=== PATIENT | female | born 1975 | race Caucasian/White ===

== ENCOUNTER 2024-11-30 17:52 | Inpatient (IN) | payer BC, SELFPAY ==
[2024-11-30] VITALS (43 sets, daily range): BP systolic 133–188; BP diastolic 64–111; PULSE 71–106; RESP 11–21; TEMP 36.7; O2SAT 93–99
--- NOTE | 2024-11-30 17:45 | RT.EKG_ITS ---
APPROVED REPORT Exam: Resting ECG Reason for Exam: Chest pain Patient Location: E HR:91 bpm ECG Measurements Heart Rate [address] 150 P 46 QRSd 91 QRS 33 QT 349 T -3 QTc 431 Conclusion Sinus rhythm...normal P axis, V-rate 60- 99
--- NOTE | 2024-11-30 18:08 | W.ED.GENAD ---
Discharge Plan Disposition Patient Disposition: Admit to [facility] Condition: Serious Discharge Details Clinical Impression: NSTEMI (non-ST elevated myocardial infarction) Admit Date/Time: 11/30/24 22:08 Admit Provider: Lit Spivey Attending Provider: Lit Spivey Primary Care Provider: Ana Cristina Ramos ED Provider: [place] [facility] General Mode of arrival: ambulatory. Date/Time Provider Initiated Documentation: 11/30/24 17:54. Limitations to Documentation: no limitations. Information obtained by: patient. History of Present Illness 49 year old F presents to the emergency department with the chief complaint of chest pain, described as moderate, Quality is described as aching, and is localized to the chest. Patient started experiencing this hour(s) (2) and it has been constant. No relieving factors improve symptom(s), No exacerbating factors reported . Patient notes denies fever/chills, nausea/vomiting and shortness of breath. Patient did receive the following treatments prior to arrival, none Related Data Home Medications ?Medication ?Instructions ?Recorded ?Confirmed Unknown [No Known Home Meds] 11/30/24 11/30/24 Allergies Allergy/AdvReac Type Severity Reaction Status Date / Time penicillin G Allergy Unknown Unverified 04/08/17 11:16 General Stated Complaint: Chest Pain DENNISE: 3 Review of Systems All systems reviewed & are unremarkable except as noted in HPI and below Constitutional Constitutional: Denies chills, Denies fever(s) and Denies weakness Cardiovascular Cardiovascular: Reports chest pain and Denies dyspnea Respiratory Respiratory: Denies cough and Denies dyspnea Gastrointestinal Gastrointestinal: Denies abdominal pain, Denies nausea and Denies vomiting Neurologic Neurologic: Denies weakness Exam Const General: no acute distress Orientation: alert [facility] Head: normal to inspection Ears: external ears normal General nose exam: external nose normal Mouth: moist mucous membranes Eyes General: appearance normal, both eyes and all related structures Neck Neck: normal visual inspection Resp Effort & Inspection: normal respiratory effort and able to speak in complete sentences Auscultation: clear to auscultation bilaterally Cardio Jugular venous pressure: no JVD Rate: regular rate Heart Sounds: no murmurs Skin General skin exam: no rashes or lesions noted Neuro General: patient alert and patient oriented x3 Extrem General: normal to inspection Psych Mental Status: mental status grossly normal Course Vital Signs Vital signs: Vital Signs Temperature 36.7 C 11/30/24 17:57 Pulse 103 H 11/30/24 17:57 Respiratory Rate 20 11/30/24 17:57 Blood Pressure 188/111 H 11/30/24 17:57 Pulse Oximetry 97 11/30/24 17:57 Temperature 36.7 C 11/30/24 17:57 Pulse 103 H 11/30/24 17:57 Respiratory Rate 20 11/30/24 18:04 Respiratory Effort Normal 11/30/24 18:04 Respiratory Depth Normal 11/30/24 18:04 Respiratory Pattern Normal 11/30/24 18:04 Blood Pressure 188/111 H 11/30/24 17:57 Blood Pressure Position Sitting 11/30/24 17:57 Pulse Oximetry 97 11/30/24 17:57 Oxygen Delivery Method Room Air 11/30/24 17:57 Oxygen Flow Rate 0 11/30/24 17:57 Pain Level 2 11/30/24 18:04 Medical Decision Making 29-year-old female who states she has no significant past medical history, is a former smoker, comes in with intermittent chest pain over the last day. She denies any diaphoresis, vomiting, difficulty breathing. She says she has an ache in her left shoulder. No recent falls, no fevers or chills. No cough. She is anxious on exam otherwise appears well. Mildly hypertensive to 160 systolic on my exam. She is mildly tachycardic at 105 which could be from her anxiety. She is clear lung sounds, no JVD, no leg swelling or calf tenderness. Given her complaints I will proceed with CBC, CMP and troponins will also obtain CTA of her chest to evaluate for PE given her tachycardia. No tearing back pain equal peripheral pulses so I doubt dissection First troponin positive at 57, patient's pain currently resolved. Will order aspirin. Delta troponin and CTA pending. Second troponin came back at 76 she has recurrent chest pain so heparin infusion ordered and will trial sublingual nitroglycerin. I have called [facility] to speak with cardiology as well I spoke with Dr. Holder from cardiology at [facility] who reviewed the case and agreed with the treatment we have given her and recommend giving a dual antiplatelet currently. They have excepted their facility but they are listing until the . Accepting provider is Dr. Husain to recommend getting an echo if able to in the morning. I also reached out to [facility] to see if they had any availability sooner and they said they cannot take any transfers due to capacity. Dr. Spivey hospitalist plans to admit and board patient in the ED until either bed opens up here or she can be transferred. PAtient updated and agrees with plan Differential Diagnosis Differential Diagnosis: ACS, PE Lab Data Lab results reviewed: Yes I reviewed the patient's lab results. ECG Data Attestation: I personally reviewed and interpreted this ECG (s) as follows: Prior ECG tracings: not available for review Interpretation: Sinus rhythm, rate of 91, MO 150, no STEMI Critical Care Time Critical Care Time Critical Care Time: Yes Total Critical Care Time: 60 (minutes) Attestation: Time spent on administering heparin, nitro drip, in a patient with a acute coronary syndrome requiring frequent reassessments and hemodynamic monitoring and potential to deteriorate at any time. PFSH All Active Problems (Updated 11/30/24 @ 22:16 by IWONA BURORUGHS) NSTEMI (non-ST elevated myocardial infarction) (Acute) NSTEMI (non-ST elevated myocardial infarction) (Acute) Social History Smoking/Tobacco Use Status: Former Tobacco Use Quit Date: 05/19/16 Smoking risk assessment performed?: Yes Alcohol Intake: current Alcohol Intake frequency: holidays/special occasions only Alcohol type: other Drug use: Never Substance use type: does not use Housing: house Do you feel safe in your relationship?: Yes
--- NOTE | 2024-11-30 18:15 | DI.CT_ITS ---
Exam(s) CT CHEST PE CTA EXAM: CT CHEST PE CTA CLINICAL HISTORY: chest pain and tachycardia. TECHNIQUE: Imaging Protocol: Axial CT angiography was performed with multi- slice acquisition and multi-planar and/or 3D reconstructions. Lung Computer Aided Detection (CAD) was utilized. CONTRAST MATERIAL: Intravenous: Omnipaque 350 contrast volume:75 mL COMPARISON: No exams were available for comparison FINDINGS: Tracheobronchial tree: Patent where visualized. No bronchiectasis. Pulmonary parenchyma: No consolidation or dominant measurable mass. No architectural distortion. Pulmonary Arteries: No evidence of filling defect to suggest pulmonary emboli. Mediastinum and Karuna: No dominant adenopathy or fluid collection. The esophagus is unremarkable. Visualized thyroid gland: Unremarkable. Pleura: No effusion or pneumothorax. Heart: The heart is not dilated. No coronary artery calcifications are seen. No pericardial effusion. Aorta: Thoracic aorta non-dilated. No evidence of dissection. There is mild atherosclerotic calcification. Upper abdomen: There is a simple hepatic cyst. Soft tissues: Unremarkable. Bones: Within normal limits for the patient's age. IMPRESSION: 1. No evidence of pulmonary embolism, thoracic aortic dissection or aneurysm. 2. No acute pulmonary process. 3. The preliminary [facility] report was reviewed. RADIATION DOSE DELIVERED: 359.49mGy.cm Total DLP DATA REPOSITORY: All CT scans at this facility are submitted to the National Radiology Data Registry (NRDR) Dose Index Registry (DIR) with the [employer] (ACR). RADIATION OPTIMIZATION: All CT scans at this facility use at least one of these dose optimization techniques: automated exposure control; mA and/or kV adjustment per patient size (includes targeted exams where dose is matched to clinical indication); or iterative reconstruction.
[2024-11-30 18:59] LABS: Abs Immature Grans 0.03 10^3/uL (0.0-0.06); HCT 48.5 % (36.0-46.0); HGB 16.1 g/dL (11.2-15.7); Immature Grans % 0.3 %; MCH 28.0 pg (27.0-33.0); MCHC 33.2 % (32.0-36.0); MCV 85 fL (80-95); MPV 9.1 fL (8.0-11.0); RBC 5.74 10^6/uL (3.93-5.22); RDW 13.9 % (11.7-14.6); RDW-SD 42.5 fL; WBC 10.45 10^3/uL (4.4-10.8)
[2024-11-30 19:13] LABS: INR 1.0 (0.9-1.1); PTT Activated 29.4 sec (20.6-30.2); Prothrombin Time 9.9 sec (9.1-11.1)
[2024-11-30 19:17] LABS: ALT 34 U/L (14-59); AST 25 U/L (15-37); Albumin 4.0 g/dL (3.4-5.0); Alkaline Phosphatase 73 U/L (46-116); Anion Gap 7.4 mmol/L (3-11); BUN 17 mg/dL (7-18); Bilirubin, Total 0.2 mg/dL (0.2-1.0); CO2 28.6 mmol/L (21.0-32.0); Calcium 9.6 mg/dL (8.5-10.1); Chloride 104 mmol/L (98-107); Estimated GFR 104.65 (mL/min/1.73m2); Glucose 97 mg/dL (74-106); Magnesium 2.1 mg/dL (1.8-2.4); Potassium 3.9 mmol/L (3.5-5.1); Sodium 140 mmol/L (136-145); Total Protein 8.2 g/dL (6.4-8.2)
[2024-11-30 19:19] LABS: Troponin I 57 ng/L (<or=51)
[2024-11-30 19:20] LABS: Platelet Count 727 10^3/uL (130-400)
[2024-11-30] MEDS: Omnipaque 350 MG/ML 100 ML BTL IJ (19:58)
[2024-11-30] MEDS: Normal Saline - Diluent 50 ML VIAL IJ (19:59)
[2024-11-30] MEDS: Normal Saline Flush 10 ML SYR IVP (19:59)
[2024-11-30 20:23] LABS: Troponin I 76 ng/L (<or=51)
[2024-11-30] MEDS: Aspirin 325 MG TAB PO (20:36)
[2024-11-30] MEDS: nitroGLYcerin 0.4 MG TAB SL ×2 (20:41→20:52)
[2024-11-30] MEDS: Heparin in 0.45% NaCl 25,000 UNIT/250 ML BAG 10 UNIT IVINF (20:50)
[2024-11-30] MEDS: nitroGLYcerin in D5W 50 MG/250 ML BTL IV (21:09)
--- NOTE | 2024-11-30 21:27 | DI.[facility]_ITS ---
PROCEDURE INFORMATION: Exam: CTA Chest With Contrast Exam date and time: 11/30/2024 7:56 PM Age: 49 years old Clinical indication: Other: Not specified; Chest pain, tachycardia TECHNIQUE: Imaging protocol: Computed tomographic angiography of the chest with contrast. Exam focused on the arteries. 3D rendering (Not supervised by radiologist): MIP and/or 3D reconstructed images were created by the technologist. Radiation optimization: All CT scans at this facility use at least one of these dose optimization techniques: automated exposure control; mA and/or kV adjustment per patient size (includes targeted exams where dose is matched to clinical indication); or iterative reconstruction. Contrast material: OMNIPAQUE 350; Contrast volume: 75 ml; Contrast route: INTRAVENOUS (IV); COMPARISON: No relevant prior studies available. FINDINGS: Pulmonary arteries: No evidence of pulmonary embolism. Aorta: Unremarkable. No aortic aneurysm. No aortic dissection. Thyroid: No thyroid lesions. No thyroid enlargement. Trachea: The central airways clear. Lungs: No focal consolidation or other acute appearing pulmonary opacity. Pleural spaces: Unremarkable. No pneumothorax. No pleural effusion. Heart: No cardiomegaly or pericardial effusion. Lymph nodes: No axillary adenopathy. Bones/joints: No acute osseous abnormality. Soft tissues: Soft tissues are unremarkable as visualized. IMPRESSION: No evidence of pulmonary embolism. Dictated and Authenticated by: Ivon Tomlinson MD. Orderin Chuck Alicia MD
--- NOTE | 2024-11-30 22:08 | HPE_ITS ---
Date of service: 11/30/24 Time of Service: 22:09 Assessment and Plan Assessment and plan (1) NSTEMI (non-ST elevated myocardial infarction): Status: Acute Assessment and plan: - Patient presented with chest pain radiating to her left shoulder was found to have initial troponin of 57 then increased to 76 without EKG changes - High risk as she is obese with a BMI of 46, and former smoker - Discussed with [facility] cardiology Dr. Holder who accepted patient for transfer though would not be able to take patient until 12/02 - Given 325 mg aspirin in the ED, will continue 81 mg daily - Started on heparin drip, will continue - Started on nitro drip for chest pain, titrate as needed - Follow-up a.m. echocardiogram - Started on at bedtime high-dose statin History of Present Illness History of Present Illness Chief Complaint: chest pain Narrative: 49-year-old female with no past medical history is former smoker presents to the emergency department with chest pain. She states over the last day she has had aching chest pain over her anterior chest that has radiated to her left shoulder over the last day. She states that the pain was brought on spontaneously not improved with rest. She denies any headache, lightheadedness, dizziness, shortness of breath, neck or back pain, abdominal pain, nausea, vomiting, diarrhea or diaphoresis. In the emergency department the patient was noted as having mildly elevated blood pressure with systolic in the 160s with otherwise normal vital signs and physical exam. CBC and CMP were unremarkable and EKG was without any ST elevations, depressions or T wave inversions but initial troponin was noted to be 57 with repeat of 76. Patient had a CT angio chest which did not show any PE or aneurysm. Emergency room physician discussed with [facility] a p supervisor Dr. Holder who agreed the patient was having NSTEMI and agreed with starting 125 mg aspirin, heparin drip, nitro drip for chest pain, and accepted patient for transfer to [facility] for left heart catheterization though they would not be able to accept for transfer until 12/02/2024. At which time emergency room physician paged hospitalist for admission for patient with NSTEMI. Review of Systems All systems reviewed & are unremarkable except as noted in HPI and below PFSH All Active Problems (Updated 11/30/24 @ 22:16 by IWONA BURROGUHS) NSTEMI (non-ST elevated myocardial infarction) (Acute) NSTEMI (non-ST elevated myocardial infarction) (Acute) Social History Smoking/Tobacco Use Status: Former Tobacco Use Quit Date: 05/19/16 Smoking risk assessment performed?: Yes Alcohol Intake: current Alcohol Intake frequency: holidays/special occasions only Alcohol type: other Drug use: Never Substance use type: does not use Housing: house Do you feel safe in your relationship?: Yes Meds Allergies and Home Medications Allergies Allergy/AdvReac Type Severity Reaction Status Date / Time penicillin G Allergy Unknown Unverified 04/08/17 11:16 Home Medications ?Medication ?Instructions ?Recorded ?Confirmed ?Type Unknown [No Known Home Meds] 11/30/24 0 11/30/24 History Exam Narrative Exam Narrative: Well-appearing female laying in bed in no acute distress, ANO x 4, heart regular rhythm, lungs clear to auscultation bilaterally, abdomen soft, nontender, nondistended Results Labs 11/30/24 18:44 11/30/24 18:44 Labs: Laboratory Results - last 24 hr 11/30/24 11/30/24 18:44 19:50 WBC 10.45 RBC 5.74 H Hgb 16.1 H Hct 48.5 H MCV 85 MCH 28.0 MCHC 33.2 RDW 13.9 Plt Count 727 H MPV 9.1 Immature Gran % 0.3 Neutrophils % 75.7 Lymphocytes % 14.4 Monocytes % 6.9 Eosinophils % 2.3 Basophils % 0.4 Nucleated RBC % 0.0 Absolute Neutrophils 7.92 H Absolute Lymphocytes 1.50 Absolute Monocytes 0.72 Absolute Eosinophils 0.24 Absolute Basophils 0.04 PT 9.9 INR 1.0 APTT 29.4 Sodium 140 Potassium 3.9 Chloride 104 Carbon Dioxide 28.6 Anion Gap 7.4 BUN 17 Creatinine 0.7 Est GFR (CKD-EPI 2020) 104.65 Glucose 97 Calcium 9.6 Magnesium 2.1 Total Bilirubin 0.2 AST 25 ALT 34 Alkaline Phosphatase 73 Troponin I 57 H* 76 H* Total Protein 8.2 Albumin 4.0 Last Vital Signs Temp 98.0 F 11/30/24 17:57 Pulse 95 H 11/30/24 20:50 Resp 14 11/30/24 20:50 BP 182/98 H 11/30/24 20:48 Pulse Ox 96 11/30/24 20:50 Time Spent Time spent with Patient: >75 minutes Time was spent: preparing to see the patient(eg.review tests), obtaining and/or reviewing separately otained hiistory, ordering medications,tests, procedures, referring, communicating with other health child care associate, indepentently interpreting results, counseling the patient and care coordination
[2024-11-30 23:02] LABS: Troponin I 135 ng/L (<or=51)
[2024-12-01] VITALS (100 sets, daily range): BP systolic 118–165; BP diastolic 66–100; PULSE 68–98; RESP 10–27; TEMP 36.1–36.4; O2SAT 89–98
[2024-12-01] MEDS: LORazepam 1 MG TAB 2 MG PO (00:27)
[2024-12-01] MEDS: Melatonin 3 MG TAB PO (00:27)
[2024-12-01 03:23] LABS: PTT Activated 37.0 sec (20.6-30.2)
[2024-12-01 05:51] LABS: HCT 38.6 % (36.0-46.0); HGB 12.6 g/dL (11.2-15.7); MCH 28.0 pg (27.0-33.0); MCHC 32.6 % (32.0-36.0); MCV 86 fL (80-95); MPV 9.3 fL (8.0-11.0); Platelet Count 544 10^3/uL (130-400); RBC 4.50 10^6/uL (3.93-5.22); RDW 14.0 % (11.7-14.6); RDW-SD 43.7 fL; WBC 7.48 10^3/uL (4.4-10.8)
[2024-12-01 06:08] LABS: Anion Gap 6.1 mmol/L (3-11); BUN 14 mg/dL (7-18); CO2 27.9 mmol/L (21.0-32.0); Calcium 8.4 mg/dL (8.5-10.1); Chloride 109 mmol/L (98-107); Estimated GFR 113.48 (mL/min/1.73m2); Glucose 83 mg/dL (74-106); Magnesium 1.9 mg/dL (1.8-2.4); Potassium 3.8 mmol/L (3.5-5.1); Sodium 143 mmol/L (136-145)
[2024-12-01 06:18] LABS: Troponin I 223 ng/L (<or=51)
--- NOTE | 2024-12-01 07:50 | NUR.NOTE ---
Nursing Note: this RN took report from ongoing shift RN. PT denies CP at this time, LS clear in all craig, PT agrees with plan of care
[2024-12-01 10:37] LABS: PTT Activated 36.1 sec (20.6-30.2)
[2024-12-01] MEDS: Heparin in 0.45% NaCl 25,000 UNIT/250 ML BAG 15 UNIT IVINF (10:53)
[2024-12-01] MEDS: Aspirin E.C. 81 MG TABEC PO (10:55)
[2024-12-01 12:35] LABS: Troponin I 145 ng/L (<or=51)
--- NOTE | 2024-12-01 12:52 | W.PM.PROGNOT ---
Date of Service Date of service: 12/01/24 Time of Service: 12:52 Assessment and Plan Assessment and plan (1) NSTEMI (non-ST elevated myocardial infarction): Status: Acute Assessment and plan: - Patient presented with chest pain radiating to her left shoulder was found to have initial troponin of 57 then increased to 76 without EKG changes - High risk as she is obese with a BMI of 46, and former smoker - Discussed with [facility] cardiology Dr. Holder who accepted patient for transfer though would not be able to take patient until 12/02 - Given 325 mg aspirin in the ED, will continue 81 mg daily - Started on heparin drip, will continue - Started on nitro drip for chest pain, titrate as needed - Follow-up a.m. echocardiogram - Started on at bedtime high-dose statin 12/01/24 Pt without chest pain at this point. Pt is awaiting transfer to [facility] for cardiac cath. Continue heparin Subjective Subjective Interval history since last seen: Pt seen and examined in the ED. Pt denies any chest pain at this time. The nitro drip has been stopped. Pt on heparin only at this time Exam Narrative Exam Narrative: Well-appearing female laying in bed in no acute distress, ANO x 4, heart regular rhythm, lungs clear to auscultation bilaterally, abdomen soft, nontender, nondistended Objective Last Vital Signs Temp 36.7 C 11/30/24 17:57 Pulse 72 12/01/24 05:40 Resp 16 12/01/24 05:40 BP 150/95 H 12/01/24 11:39 Pulse Ox 96 12/01/24 05:40 Laboratory Results - last 24 hr 11/30/24 11/30/24 11/30/24 18:44 19:50 22:25 WBC 10.45 RBC 5.74 H Hgb 16.1 H Hct 48.5 H MCV 85 MCH 28.0 MCHC 33.2 RDW 13.9 Plt Count 727 H MPV 9.1 Immature Gran % 0.3 Neutrophils % 75.7 Lymphocytes % 14.4 Monocytes % 6.9 Eosinophils % 2.3 Basophils % 0.4 Nucleated RBC % 0.0 Absolute Neutrophils 7.92 H Absolute Lymphocytes 1.50 Absolute Monocytes 0.72 Absolute Eosinophils 0.24 Absolute Basophils 0.04 PT 9.9 INR 1.0 APTT 29.4 Sodium 140 Potassium 3.9 Chloride 104 Carbon Dioxide 28.6 Anion Gap 7.4 BUN 17 Creatinine 0.7 Est GFR (CKD-EPI 2020) 104.65 Glucose 97 Calcium 9.6 Magnesium 2.1 Total Bilirubin 0.2 AST 25 ALT 34 Alkaline Phosphatase 73 Troponin I 57 H* 76 H* 135 H* Total Protein 8.2 Albumin 4.0 12/01/24 12/01/24 12/01/24 03:07 05:37 10:16 WBC 7.48 RBC 4.50 Hgb 12.6 D Hct 38.6 MCV 86 MCH 28.0 MCHC 32.6 RDW 14.0 Plt Count 544 H MPV 9.3 Immature Gran % Neutrophils % Lymphocytes % Monocytes % Eosinophils % Basophils % Nucleated RBC % Absolute Neutrophils Absolute Lymphocytes Absolute Monocytes Absolute Eosinophils Absolute Basophils PT INR APTT 37.0 H 36.1 H Sodium 143 Potassium 3.8 Chloride 109 H Carbon Dioxide 27.9 Anion Gap 6.1 BUN 14 Creatinine 0.5 L Est GFR (CKD-EPI 2020) 113.48 Glucose 83 Calcium 8.4 L Magnesium 1.9 Total Bilirubin AST ALT Alkaline Phosphatase Troponin I 223 H* Total Protein Albumin 12/01/24 12/01/24 12/01/24 11:30 12:01 17:30 WBC RBC Hgb Hct MCV MCH MCHC RDW Plt Count MPV Immature Gran % Neutrophils % Lymphocytes % Monocytes % Eosinophils % Basophils % Nucleated RBC % Absolute Neutrophils Absolute Lymphocytes Absolute Monocytes Absolute Eosinophils Absolute Basophils PT INR APTT Sodium Potassium Chloride Carbon Dioxide Anion Gap BUN Creatinine Est GFR (CKD-EPI 2020) Glucose Calcium Magnesium Total Bilirubin AST ALT Alkaline Phosphatase Troponin I Cancelled 145 H* Cancelled Total Protein Albumin Time Spent with Patient Time Spent with Patient: 25-34 minutes Time was spent: preparing to see the patient(eg.review tests), obtaining and/or reviewing separately otained hiistory, ordering medications,tests, procedures, referring, communicating with other health career manager, indepentently interpreting results, counseling the patient and care coordination
--- NOTE | 2024-12-01 16:15 | W.PC.ACHO ---
Registration Status: ADM IN Primary Language: Preferred Language: Syriac ED Information & Data Chief Complaint Chest Pain 11/30/24 18:29 Triage Note Pt reports she has been 11/30/24 17:57 experiencing CP intermittently. Pt reports substernal pain that radiates to left arm. States left arm is achy. 5/10. Comes on all of a sudden, then relieves all of a sudden. Has been constant since yesterday. Most Recent Vital Signs Temperature 98.0 F 11/30/24 17:57 Pulse 90 12/01/24 15:10 Pulse 91 H 12/01/24 15:10 Respiratory Rate 20 12/01/24 15:10 Respiratory Effort Normal 11/30/24 18:04 Respiratory Depth Normal 11/30/24 18:04 Respiratory Pattern Normal 11/30/24 18:04 Blood Pressure 132/84 12/01/24 12:52 Blood Pressure Mean 100 12/01/24 12:52 Blood Pressure Position Sitting 12/01/24 12:52 Pulse Oximetry 93 12/01/24 15:10 Oxygen Delivery Method Room Air 12/01/24 12:52 Oxygen Flow Rate 0 12/01/24 12:52 Pain Level 0 12/01/24 12:52 Allergies penicillin G Allergy (Unknown, Unverified 04/08/17 11:16) Active Medications Generic Name Dose Route Start Last Admin Trade Name Freq PRN Reason Stop Dose Admin Aspirin 81 mg 12/01/24 08:30 12/01/24 10:55 Aspirin E.C. 81 Mg Tabec PO 81 mg DAILY JOIE Administration Heparin Sodium/Sodium Chloride 25,000 unit in 250 mls @ 10 mls/hr 11/30/24 20:45 12/01/24 10:53 IVINF 1,250 units/hr INFUSION JOIE 12.5 mls/hr Protocol Administration 1,000 UNITS/HR Nitroglycerin/Dextrose 50 mg in 250 mls @ 1.5 mls/hr 11/30/24 21:00 12/01/24 10:56 IV 0 mcg/min INFUSION JOIE 0 mls/hr Protocol Titration 5 MCG/MIN Nitroglycerin 0.4 mg 11/30/24 20:36 11/30/24 20:52 Nitroglycerin 0.4 Mg Tab SL 0.4 mg Q5 MIN PRN X3 PRN Administration Sodium Chloride 0 ml 11/30/24 18:05 11/30/24 19:59 Normal Saline Flush 10 Ml Syr IVP 10 ml PRN PRN Administration IV IV Catheter Type [Left Forearm Saline Lock ] IV Catheter Type [Right Peripheral IV Antecubital] IV Catheter Gauge [Left 20 Forearm] IV Catheter Gauge [Right 18 Antecubital] Diagnostics 12/01/24 12/01/24 12/01/24 Range/Units 17:30 12:01 11:30 WBC (4.4-10.8) 10^3/uL RBC (3.93-5.22) 10^6/uL Hgb (11.2-15.7) g/dL Hct (36.0-46.0) % MCV (80-95) fL MCH (27.0-33.0) pg MCHC (32.0-36.0) % RDW (11.7-14.6) % Plt Count (130-400) 10^3/uL MPV (8.0-11.0) fL Immature Gran % % Neutrophils % % Lymphocytes % % Monocytes % % Eosinophils % % Basophils % % Nucleated RBC % (0.0-0.3) % Absolute Neutrophils (1.2-6.7) 10^3/uL Absolute Lymphocytes (1.2-3.4) 10^3/uL Absolute Monocytes (0.1-0.8) 10^3/uL Absolute Eosinophils (0.0-0.7) 10^3/uL Absolute Basophils (0.0-0.2) 10^3/uL PT (9.1-11.1) sec INR (0.9-1.1) APTT (20.6-30.2) sec Sodium (136-145) mmol/L Potassium (3.5-5.1) mmol/L Chloride (98-107) mmol/L Carbon Dioxide (21.0-32.0) mmol/L Anion Gap (3-11) mmol/L BUN (7-18) mg/dL Creatinine (0.55-1.02) mg/dL Est GFR (CKD-EPI 2020) (mL/min/1.73m2) Glucose (74-106) mg/dL Calcium (8.5-10.1) mg/dL Magnesium (1.8-2.4) mg/dL Total Bilirubin (0.2-1.0) mg/dL AST (15-37) U/L ALT (14-59) U/L Alkaline Phosphatase (46-116) U/L Troponin I Cancelled 145 H* Cancelled (<or=51) ng/L Total Protein (6.4-8.2) g/dL Albumin (3.4-5.0) g/dL B. divergens/MO-1 PCR Pending Babesia duncani (PCR) Pending Babesia microti DNA PCR Pending Lyme Disease Antibody Cancelled E.chaffeensis DNA (PCR) Pending E.ewingii/canis DNA PCR Pending E.muris eauclairensis (PCR) Pending A. phagocytophilum (PCR) Pending Blood B. miyamotoi (PCR) Pending 12/01/24 12/01/24 12/01/24 Range/Units 10:16 05:37 03:07 WBC 7.48 (4.4-10.8) 10^3/uL RBC 4.50 (3.93-5.22) 10^6/uL Hgb 12.6 D (11.2-15.7) g/dL Hct 38.6 (36.0-46.0) % MCV 86 (80-95) fL MCH 28.0 (27.0-33.0) pg MCHC 32.6 (32.0-36.0) % RDW 14.0 (11.7-14.6) % Plt Count 544 H (130-400) 10^3/uL MPV 9.3 (8.0-11.0) fL Immature Gran % % Neutrophils % % Lymphocytes % % Monocytes % % Eosinophils % % Basophils % % Nucleated RBC % (0.0-0.3) % Absolute Neutrophils (1.2-6.7) 10^3/uL Absolute Lymphocytes (1.2-3.4) 10^3/uL Absolute Monocytes (0.1-0.8) 10^3/uL Absolute Eosinophils (0.0-0.7) 10^3/uL Absolute Basophils (0.0-0.2) 10^3/uL PT (9.1-11.1) sec INR (0.9-1.1) APTT 36.1 H 37.0 H (20.6-30.2) sec Sodium 143 (136-145) mmol/L Potassium 3.8 (3.5-5.1) mmol/L Chloride 109 H (98-107) mmol/L Carbon Dioxide 27.9 (21.0-32.0) mmol/L Anion Gap 6.1 (3-11) mmol/L BUN 14 (7-18) mg/dL Creatinine 0.5 L (0.55-1.02) mg/dL Est GFR (CKD-EPI 2020) 113.48 (mL/min/1.73m2) Glucose 83 (74-106) mg/dL Calcium 8.4 L (8.5-10.1) mg/dL Magnesium 1.9 (1.8-2.4) mg/dL Total Bilirubin (0.2-1.0) mg/dL AST (15-37) U/L ALT (14-59) U/L Alkaline Phosphatase (46-116) U/L Troponin I 223 H* (<or=51) ng/L Total Protein (6.4-8.2) g/dL Albumin (3.4-5.0) g/dL B. divergens/MO-1 PCR Babesia duncani (PCR) Babesia microti DNA PCR Lyme Disease Antibody E.chaffeensis DNA (PCR) E.ewingii/canis DNA PCR E.muris eauclairensis (PCR) A. phagocytophilum (PCR) Blood B. miyamotoi (PCR) 11/30/24 11/30/24 11/30/24 Range/Units 22:25 19:50 18:44 WBC 10.45 (4.4-10.8) 10^3/uL RBC 5.74 H (3.93-5.22) 10^6/uL Hgb 16.1 H (11.2-15.7) g/dL Hct 48.5 H (36.0-46.0) % MCV 85 (80-95) fL MCH 28.0 (27.0-33.0) pg MCHC 33.2 (32.0-36.0) % RDW 13.9 (11.7-14.6) % Plt Count 727 H (130-400) 10^3/uL MPV 9.1 (8.0-11.0) fL Immature Gran % 0.3 % Neutrophils % 75.7 % Lymphocytes % 14.4 % Monocytes % 6.9 % Eosinophils % 2.3 % Basophils % 0.4 % Nucleated RBC % 0.0 (0.0-0.3) % Absolute Neutrophils 7.92 H (1.2-6.7) 10^3/uL Absolute Lymphocytes 1.50 (1.2-3.4) 10^3/uL Absolute Monocytes 0.72 (0.1-0.8) 10^3/uL Absolute Eosinophils 0.24 (0.0-0.7) 10^3/uL Absolute Basophils 0.04 (0.0-0.2) 10^3/uL PT 9.9 (9.1-11.1) sec INR 1.0 (0.9-1.1) APTT 29.4 (20.6-30.2) sec Sodium 140 (136-145) mmol/L Potassium 3.9 (3.5-5.1) mmol/L Chloride 104 (98-107) mmol/L Carbon Dioxide 28.6 (21.0-32.0) mmol/L Anion Gap 7.4 (3-11) mmol/L BUN 17 (7-18) mg/dL Creatinine 0.7 (0.55-1.02) mg/dL Est GFR (CKD-EPI 2020) 104.65 (mL/min/1.73m2) Glucose 97 (74-106) mg/dL Calcium 9.6 (8.5-10.1) mg/dL Magnesium 2.1 (1.8-2.4) mg/dL Total Bilirubin 0.2 (0.2-1.0) mg/dL AST 25 (15-37) U/L ALT 34 (14-59) U/L Alkaline Phosphatase 73 (46-116) U/L Troponin I 135 H* 76 H* 57 H* (<or=51) ng/L Total Protein 8.2 (6.4-8.2) g/dL Albumin 4.0 (3.4-5.0) g/dL B. divergens/MO-1 PCR Babesia duncani (PCR) Babesia microti DNA PCR Lyme Disease Antibody Pending E.chaffeensis DNA (PCR) E.ewingii/canis DNA PCR E.muris eauclairensis (PCR) A. phagocytophilum (PCR) Blood B. miyamotoi (PCR) Intake and Output - 24 Hour Total 11/30/24 17:52 thru 12/01/24 10:56 Intake Total 189.509 Balance 189.509 Weight 278 lb Intake: IV 189.509 Falls Risk Assessment History of Falls No History 11/30/24 19:53 Contributing Factors No Factors 11/30/24 19:53 Ambulatory Aids Independent 11/30/24 19:53 Tubes/Lines None 11/30/24 19:53 Gait Evaluation No gait disturbance 11/30/24 19:53 Cognition No cognitive impairment 11/30/24 19:53 Fall Total Score 0 11/30/24 19:53 Level of Risk Standard/Low Risk 11/30/24 19:53 Problems NSTEMI (non-ST elevated myocardial infarction) (Acute) NSTEMI (non-ST elevated myocardial infarction) (Acute) Notes 12/01/24 07:50 Nursing Notes by Debbi Hauser Nursing Note: this RN took report from ongoing shift RN. PT denies CP at this time, LS clear in all craig, PT agrees with plan of care Initialized on 12/01/24 07:50 - END OF NOTE v v v v v v v v v Sending and/or Receiving Nurses: Please use comment section below to note any information pertinent to the patient hand-off not included above. Information / Comments: Troponin due at 1700 Report received from: Debbi Hauser RN
--- NOTE | 2024-12-01 16:57 | PDOC.CMIN ---
Date of service: 12/01/24 Time of Service: 16:57 Care Management Initial Assmt Initial Assessment Reason for Hospitalization: NSTEMI Functional Status/Living Situation Patient Presentation: Sarahi was sitting up in bed when CM met with her. She was surrounded by family in her room, who were visiting. She stated that things have been going well, and her questions have been answered. Per report, her plan will be to transfer to [facility] once a bed becomes available. She expressed understanding of this plan. Her RN was in the room completing her admission assessment, as she had recently been transferred from the ED to /, therefore the assessment was brief. CM will continue to follow. Town of Residence: [place] Resides with: Spouse Natural Supports: , Flo Employment Status: Employed Instrumental Activities of Daily Living (ADLs): Independent Medications Medication Management: No Issues/Barriers identified Advance Directives Advance Directives: Do you have an Advance Directive: N 12/26/12, 10:51 AD On File at [facility]: N 12/26/12, 10:51 Date Asked 11/30/24 11/30/24, 20:44 AD Date Reviewed COLST On File at [facility] COLST Date Scanned Code Status Resuscitation Status Full Code Insurance Coverage/Financial Issues Insurance: / Care Team Visit Care Team Role Provider Type Jerson Pardo MD MD [facility] STAFF PHYSICIAN Ana Cristina Ramos Primary Care Provider NURSE PRACTITIONER Ravin Woods MD Emergency Provider [facility] STAFF PHYSICIAN Lit Spivey MD Admit Provider [facility] STAFF PHYSICIAN Attending Provider Discharge Potential Discharge Needs: PCP F/U Appt Anticipated Barriers to Discharge: Bed availability and Medical Status Patient/Family Education Needs: Review discharge instructions, discuss Ask Me Three Transportation: EMS Plan: Sarahi has been accepted for transfer to [facility], and is currently waiting for a bed to become available. She will transport via EMS once a bed becomes available, coordinated by RN beet end supervisor. She will follow up with her PCP and discharge plan of care. CM will continue to follow. Social Determinants of Health Screening Social Determinants of health last assessed in clinic: 12/01/24 Will the Patient Participate in the Screening?: Yes Do you worry about having a steady place to live?: no Problems where you live: no known problems In the past 12 months, have you had to go without electric, gas, oil or water in your home?: no 1. Within the past 12 months, we worried whether our food would run out before we got money to buy more.: Don't know/refused 2. Within the past 12 months, the food we bought just didn't last and we didn't have money to get more.: Don't know/refused Has lack of transportation kept you from medical appointments or from doing things needed for daily living?: no Has anyone in your life made you feel unsafe or unsupported?: no How hard is it for you to pay for the very basics like food, housing, medical care, and heating? Would you say it is:: Not hard at all Do you want help finding or keeping work or a job?: I do not need or want help If for any reason you need help with day-to-day activities such as bathing, preparing meals, shopping, managing finances, etc., do you get the help you need?: I don?t need any help How often do you feel lonely or isolated from those around you?: Never Do you speak a language other than [place] Islander at home?: No Does the patient want assistance with any of the above?: No PFSH All Active Problems (Updated 11/30/24 @ 22:16 by IWONA BURROUGHS) NSTEMI (non-ST elevated myocardial infarction) (Acute) NSTEMI (non-ST elevated myocardial infarction) (Acute) Social History Smoking/Tobacco Use Status: Former Tobacco Use Quit Date: 05/19/16 Smoking risk assessment performed?: Yes Alcohol Intake: current Alcohol Intake frequency: holidays/special occasions only Alcohol type: other Drug use: Never Substance use type: does not use Housing: house Do you feel safe in your relationship?: Yes
[2024-12-01 17:50] LABS: PTT Activated 63.3 sec (20.6-30.2)
[2024-12-01] MEDS: Atorvastatin 40 MG TAB 80 MG PO (20:15)
[2024-12-01] MEDS: Normal Saline Flush 10 ML SYR IVP (20:16)
[2024-12-02 00:12] LABS: PTT Activated 60.6 sec (20.6-30.2)
[2024-12-02] MEDS: Heparin in 0.45% NaCl 25,000 UNIT/250 ML BAG 15 UNIT IVINF ×2 (01:33→18:23)
--- NOTE | 2024-12-02 03:30 | RT.EKG_ITS ---
APPROVED REPORT Exam: Resting ECG Reason for Exam: Chest pain Patient Location: I HR:80 bpm ECG Measurements Heart Rate 80 AXIS DC 168 P 51 QRSd 100 QRS 40 QT 363 T 4 QTc 419 Conclusion Sinus rhythm...normal P axis, V-rate 50- 99 Normal Electrocardiogram
[2024-12-02] MEDS: nitroGLYcerin 0.4 MG TAB SL ×2 (03:35→20:29)
[2024-12-02 03:40] VITALS: BP 174/108; PULSE 94; RESP 20; TEMP 35.5; O2SAT 94
[2024-12-02 03:50] VITALS: BP 132/77; PULSE 79; RESP 18; TEMP 35.9; O2SAT 79
[2024-12-02] MEDS: nitroGLYcerin 2% 1 INCH/1 GM PKT (04:50)
[2024-12-02 05:31] VITALS: BP 118/76; PULSE 77; RESP 19; TEMP 36.7; O2SAT 95
--- NOTE | 2024-12-02 07:44 | NUR.NOTE ---
Nursing Note: At 03:30 hrs., Patient woke up with chest pain, V/S taken and recorded. NTG sublingual given and has relieved., EKG and troponin level was ordered. Nitro paste of 2 inches applied on left chest. Patient able to sleep and at bedside. Instructed to be NPO for plan to go to for cardiac cath. Patient is very much aware of the procedure. Continue to monitor and Endorsed to day nurse assigned. Call lights at reach.
[2024-12-02 08:11] LABS: Troponin I 136 ng/L (<or=51)
[2024-12-02] MEDS: Aspirin E.C. 81 MG TABEC PO (08:33)
[2024-12-02] MEDS: Acetaminophen 325 MG TAB 650 MG PO ×2 (08:33→13:27)
[2024-12-02] MEDS: Normal Saline Flush 10 ML SYR IVP ×2 (08:34→20:06)
[2024-12-02 10:34] LABS: Lyme Ab w Rflx to Lyme Confirm Negative (Negative)
[2024-12-02 11:00] VITALS: BP 137/74; PULSE 76; RESP 16; TEMP 36.1; O2SAT 96
--- NOTE | 2024-12-02 12:41 | CMPROGNOTE_ITS ---
Date of service: 12/02/24 Time of Service: 12:41 Care Management Progress Note Progress Note Text Progress Note Text: Sarahi was lying in bed when CM met with her. Her and daughter were in the room visiting. Sraahi stated that she had an event overnight where she had chest pain, which was scary for both her and her . At that time, she tried to utilize the RN button on her bed, which wasn't working. Thankfully, her was in the room and was able to go to the nursing station to request help. She reported that her chest pain has resolved, and that her RN showed her that there is an RN call button on the remote attached to her bed, which is working and is reliable. Sarahi had questions about her lab results from this morning, and her plan of care. CHERRIE discussed this with her RN, who will discuss her lab results. Per report, she has been accepted at [facility], pending bed availability. CM provided support and validation, as it is difficult to wait for treatment, and this can produce anxiety. She is agreeable to the plan, and is looking forward to an update from MD, and to transfer as soon as she is able. CM will continue to follow. Discharge Potential Discharge Needs: Other (transfer to [facility]) Anticipated Barriers to Discharge: Bed availability Patient/Family Education Needs: Review discharge instructions, discuss Ask Me T hree Transportation: EMS Plan: Sarahi has been accepted for transfer to [facility], and is currently waiting for a bed to become available. She will transport via EMS once a bed becomes available, coordinated by RN supervisor sewer system. She will follow up with her PCP and discharge plan of care. CM will continue to follow. Social Determinants of Health Screening Social Determinants of health last assessed in clinic: 12/01/24 Will the Patient Participate in the Screening?: Declined to provide Do you worry about having a steady place to live?: no Problems where you live: no known problems In the past 12 months, have you had to go without electric, gas, oil or water in your home?: no Has lack of transportation kept you from medical appointments or from doing things needed for daily living?: no Has anyone in your life made you feel unsafe or unsupported?: no How hard is it for you to pay for the very basics like food, housing, medical care, and heating? Would you say it is:: Not hard at all Do you want help finding or keeping work or a job?: I do not need or want help If for any reason you need help with day-to-day activities such as bathing, preparing meals, shopping, managing finances, etc., do you get the help you need?: I don?t need any help How often do you feel lonely or isolated from those around you?: Never Do you speak a language other than Eritrean at home?: No Does the patient want assistance with any of the above?: No
--- NOTE | 2024-12-02 13:55 | CHAPLAIN ---
Sarahi was sitting up in bed visiting with three family members/friends when I stopped in. She said she's just waiting for an answer. At morning meeting it was discussed that Sarahi would be transferring to [facility] for further cardiac care when a bed becomes available. I explained my role and offered support.
[2024-12-02 15:46] VITALS: BP 140/85; PULSE 76; RESP 16; TEMP 36.8; O2SAT 95
--- NOTE | 2024-12-02 16:12 | W.PM.PROGNOT ---
Date of Service Date of service: 12/02/24 Time of Service: 16:12 Assessment and Plan Assessment and plan (1) NSTEMI (non-ST elevated myocardial infarction): Status: Acute Assessment and plan: - Patient presented with chest pain radiating to her left shoulder was found to have initial troponin of 57 then increased to 76 without EKG changes - High risk as she is obese with a BMI of 46, and former smoker - Discussed with [facility] cardiology Dr. Holder who accepted patient for transfer though would not be able to take patient until 12/02 - Given 325 mg aspirin in the ED, will continue 81 mg daily - Started on heparin drip, will continue - Started on nitro drip for chest pain, titrate as needed - Follow-up a.m. echocardiogram - Started on at bedtime high-dose statin 12/01/24 Pt without chest pain at this point. Pt is awaiting transfer to [facility] for cardiac cath. Continue heparin 12/02/24 One episode of chest pain last PM which resolved with nitro, troponin elevated but stable Subjective Subjective Interval history since last seen: pt with one episode of chest pain last pm. CP free today Exam Narrative Exam Narrative: Well-appearing female laying in bed in no acute distress, ANO x 4, heart regular rhythm, lungs clear to auscultation bilaterally, abdomen soft, nontender, nondistended Objective Last Vital Signs Temp 36.8 C 12/02/24 15:46 Pulse 76 12/02/24 15:46 Resp 16 12/02/24 15:46 BP 140/85 12/02/24 15:46 Pulse Ox 95 12/02/24 15:46 Laboratory Results - last 24 hr 11/30/24 12/01/24 12/01/24 18:44 17:15 23:50 APTT 63.3 H 60.6 H Troponin I Lyme Disease Antibody Negative 12/02/24 07:45 APTT Troponin I 136 H* Lyme Disease Antibody Time Spent with Patient Time Spent with Patient: 25-34 minutes Time was spent: preparing to see the patient(eg.review tests), obtaining and/or reviewing separately otained hiistory, ordering medications,tests, procedures, referring, communicating with other health rn home care, indepentently interpreting results, counseling the patient and care coordination
[2024-12-02] MEDS: Atorvastatin 40 MG TAB 80 MG PO (20:05)
--- NOTE | 2024-12-02 20:30 | RT.EKG_ITS ---
APPROVED REPORT Exam: Resting ECG Reason for Exam: chest pain Patient Location: I HR:84 bpm ECG Measurements Heart Rate 84 AXIS AK 165 P 56 QRSd 92 QRS 60 QT 335 T 31 QTc 396 Conclusion Sinus rhythm...normal P axis, V-rate 50- 99 Normal Electrocardiogram
[2024-12-02] MEDS: nitroGLYcerin 2% 1 INCH/1 GM PKT TP (21:21)
--- NOTE | 2024-12-02 21:40 | NUR.NOTE ---
Nursing Note: At 2030 hrs. afterambulating from toilet to bed, patient complained of chest pain., NTG sublingual 1 tab given and with good relief. B/P is 113/56, HR of 106. patient is on sitting position, anxious r/t to episode. MD ordered EKG and nitro paste applied 2 on right chest. Family members at bedside. Seen by and called for bed, will be transported tonight as planned.
--- NOTE | 2024-12-02 21:50 | W.PM.DS.N ---
Date of service: 12/02/24 Time of Service: 21:50 DS: Diagnosis Discharge Diagnosis (1) NSTEMI (non-ST elevated myocardial infarction): Start date: 11/30/24 Status: Acute Asessment and Plan: This is a 49-year-old lady who had new onset retrosternal chest pain radiating into her left arm which was exertional prior to admission and self resolving but recurrent upon arrival to the ED. It was responsive to nitroglycerin sublingually and a nitroglycerin drip with heparin infusion initiated. She was loaded with aspirin and continued on baby aspirin with high-dose atorvastatin during her hospital stay but did not start beta-marisela. She was waiting for availability of bed throughout her hospital stay and did require Nitropaste and oxycodone sublingually for stuttering recurrent resting and then exertional chest pain which was less severe than her presentation. She was stable at transfer. Discharge Plan Disposition Patient Disposition: Transfer-Acute Inpatient Care Specific Acute In Facility: [facility] Condition: Stable Discharge Details Reason For Visit: NSTEMI Admit Date/Time: 11/30/24 22:08 Admit Provider: Lit Spivey Attending Provider: Lit Spivey Primary Care Provider: Ana Cristina Ramos Hospital Course Hospital Course: This is a 49-year-old lady who was admitted with new onset exertional retrosternal chest pain with associated diaphoresis responsive to the regimen. She was diagnosed with NSTEMI and on heparin infusion throughout her hospital stay with nitroglycerin drip initially which was discontinued on her first day. She had recurrent resting chest pain the morning of her transfer which was responsive to sublingual nitroglycerin she was placed on Nitropaste. She had 1 more episode of exertional chest pain responsive to nitroglycerin sublingually with Nitropaste reapplied prior to transfer. She was pain-free at transfer. See H&P and progress notes outlined in her hospital stay which was not eventful. She was transferred to [facility] cardiology service in stable condition via ambulance with ACLS protocol and assistant speech language pathologist. Home Meds and New Rx's Prescriptions: No Action No Known Home Meds Discharge Instructions Activity:: Bedrest Equipment/Supplies:: No Equipment Needed Diet:: NPO Discharge Orders Discharge Orders: Discharge Order (Routine); Ordered 12/02/24 Ordered By: Spencer Cobb Discharge Data Discharge Comment: Transfer via ambulance with assistant speech language pathologist, ACLS protoc DS: Summary Time Spent with Patient providing and/or coordinating discharge services: Less than 30 minutes Specific discharge activities: Review of chart and interviewing patient for transfer. Also I discussed plan of care with family in the room. Status at Discharge Functional status at discharge: independent ambulation Overall status at discharge: patient is not back to baseline Mental Status: mental status grossly normal Speech and Movement: speech and movement normal Mood: congruent mood Affect: normal affect Exam Narrative Exam Narrative: See progress note for physical exam on day of transfer. This was unchanged at discharge and patient was pain-free. Psych Mental Status: mental status grossly normal Speech and Movement: speech and movement normal Mood: congruent mood Affect: normal affect DS: Data Vitals/I&O Vitals and I&O: Vital Signs Temperature 36.8 C 12/02/24 15:46 Temperature Source Temporal Artery Scan 12/02/24 15:46 Pulse 76 12/02/24 15:46 Pulse Rhythm Regular 12/01/24 17:21 Pulse 94 H 12/01/24 15:40 Respiratory Rate 16 12/02/24 15:46 Respiratory Effort Normal 12/01/24 17:21 Respiratory Depth Normal 12/01/24 17:21 Respiratory Pattern Normal 12/01/24 17:21 Blood Pressure 140/85 12/02/24 15:46 Blood Pressure Mean 103 12/02/24 15:46 Blood Pressure Position Sitting 12/01/24 12:52 Pulse Oximetry 95 12/02/24 15:46 Oxygen Delivery Method Room Air 12/02/24 15:46 Oxygen Flow Rate 0 12/02/24 15:46 Pain Level 6 12/02/24 21:21 Intake & Output 12/01/24 12/02/24 12/02/24 23:59 11:59 23:59 Intake Total 381.0 / 560.509 210.25 / 382.50 172.25 / 382.50 Balance 381.0 / 560.509 210.25 / 382.50 172.25 / 382.50 Weight 128.82 kg Intake: IV 141.0 / 320.509 210.25 / 382.50 172.25 / 382.50 Oral 240 / 240 Other: Urine Color Pale Yellow Yellow Urine Appearance Clear Clear Urine Odor Normal Data Completed and Pending Labs on day of discharge: Labs from last 24 hours 12/02/24 12/01/24 11/30/24 07:45 23:50 18:44 APTT 60.6 H Troponin I 136 H* Lyme Disease Antibody Negative PFSH All Active Problems (Updated 11/30/24 @ 22:16 by IWONA BURROUGHS) NSTEMI (non-ST elevated myocardial infarction) (Acute) NSTEMI (non-ST elevated myocardial infarction) (Acute) Social History Smoking/Tobacco Use Status: Former Tobacco Use Quit Date: 05/19/16 Smoking risk assessment performed?: Yes Alcohol Intake: current Alcohol Intake frequency: holidays/special occasions only Alcohol type: other Drug use: Never Substance use type: does not use Housing: house Do you feel safe in your relationship?: Yes Time Spent with Patient Time Spent with Patient: <45 minutes Time was spent: preparing to see the patient(eg.review tests), indepentently interpreting results, counseling the patient and care coordination
[2024-12-02 23:15] VITALS: BP 113/58; PULSE 82; RESP 16; TEMP 37; O2SAT 94
[2024-12-03 00:58] VITALS: BP 120/75; PULSE 80; RESP 18; TEMP 36.2; O2SAT 94
[2024-12-03] MEDS: Acetaminophen 325 MG TAB 650 MG PO ×2 (01:19→07:49)
[2024-12-03 01:41] LABS: PTT Activated 64.6 sec (20.6-30.2)
[2024-12-03] MEDS: nitroGLYcerin 2% 1 INCH/1 GM PKT TP ×2 (03:00→15:40)
[2024-12-03 07:42] VITALS: BP 127/72; PULSE 78; RESP 16; TEMP 36.7; O2SAT 93
[2024-12-03] MEDS: Aspirin E.C. 81 MG TABEC PO (07:49)
[2024-12-03 08:00] VITALS: O2SAT 93
--- NOTE | 2024-12-03 08:50 | PDOC.CMDIS ---
Date of service: 12/03/24 Time of Service: 08:50 LACE Index Scoring Tool Questions: Length of Stay (in days): 3 Was the patient admitted via the E.D.?: Yes E.D. Visits: 1 Answers: Total Score: 7 Risk of Readmission: Low Risk Care Management Discharge Plan Reason for Hospitalization: NSTEMI Discharge Plan: Transfer to [facility] [place] via EMS. Patient/Family Education Needs: Plan to transfer has been reviewed in detail, review ask me three.
[2024-12-03] MEDS: Heparin in 0.45% NaCl 25,000 UNIT/250 ML BAG 15 UNIT IVINF (11:22)
[2024-12-03 11:38] VITALS: BP 132/73; PULSE 76; RESP 16; TEMP 36.5; O2SAT 96
--- NOTE | 2024-12-03 15:13 | CHAPLAIN ---
Sarahi continues to wait to be transferred to [facility]. Last night a helicopter was arranged to take her, but it wasn't able to land due to weather. Another transfer was scheduled for 7 am this morning, but she said that was cancelled too. She's waiting for a bed at [facility] for further cardiac care. Sarahi has had several family members visiting with her through out her stay. She appreciated the prayer shawl I brought her, which was purple and turned out to be her favorite color.
[2024-12-03] MEDS: LORazepam 1 MG TAB PO (15:39)
--- NOTE | 2024-12-03 15:45 | RT.EKG_ITS ---
APPROVED REPORT Exam: Resting ECG Reason for Exam: chest pain Patient Location: I HR:86 bpm ECG Measurements Heart Rate 86 AXIS GA 166 P 55 QRSd 93 QRS 64 QT 348 T 21 QTc 417 Conclusion Sinus rhythm...normal P axis, V-rate 50- 99 Normal Electrocardiogram
[2024-12-03 15:55] VITALS: BP 146/82; PULSE 85; RESP 22; O2SAT 94
[2024-12-03 16:50] LABS: Troponin I 41 ng/L (<or=51)
[2024-12-04 15:08] LABS: B. miyamotoi PCR Negative (Negative); Babesia divergens/MO-1 Negative (Negative); Ehrlichia muris eauclairensis Negative (Negative)
== END 2024-12-03 16:45 | disposition short-term general hospital (02) | DRG 281 ==
LOC: ER 20:44 → EDHOLD 22:16 → MS 12-01 16:23
PROVIDERS: Family Medicine; Admitting Provider Family Medicine; Emergency Provider Emergency Medicine; PCP Nurse Practitioner Family; Responsible Provider Hospitalist; Visit Provider Family Medicine
DX: I21.4 Non-ST elevation (NSTEMI) myocardial infarction (principal); Z68.42 Body mass index [BMI] 45.0-49.9, adult; Z87.891 Personal history of nicotine dependence; E66.9 Obesity, unspecified
CPT/HCPCS: 00123; 36415; 71275; 80048; 80053; 85027; 87798; 93005; 96365; 96366; 96367; 99291; 83735; 84484; 85025; 85610; 85730; 86618; 93010; 93306; 99223; 99232; 99238; J1644; J2305; J3490

== ENCOUNTER 2025-01-27 04:19 | Outpatient (CLI) | payer BC, SELFPAY ==
[2025-01-27 08:41] LABS: HCT 47.2 % (36.0-46.0); HGB 15.7 g/dL (11.2-15.7); MCH 28.3 pg (27.0-33.0); MCHC 33.3 % (32.0-36.0); MCV 85 fL (80-95); MPV 9.4 fL (8.0-11.0); Platelet Count 700 10^3/uL (130-400); RBC 5.55 10^6/uL (3.93-5.22); RDW 13.4 % (11.7-14.6); RDW-SD 42.0 fL; WBC 6.99 10^3/uL (4.4-10.8)
[2025-01-27 09:06] LABS: Hemoglobin A1C 5.4 % (<5.7)
[2025-01-27 09:24] LABS: Calculated LDL 119 mg/dL (<100); Cholesterol 183 mg/dL (<200); HDL Cholesterol 48 mg/dL (>or=50); Triglyceride 83 mg/dL (<150); Vitamin D 25 Total 8 ng/mL (30-100)
== END 2025-01-27 04:20 | disposition home or self-care (01) ==
LOC: LBO 04:19
PROVIDERS: PCP Nurse Practitioner Family; Visit Provider Nurse Practitioner Family
DX: Z00.00 Encounter for general adult medical examination without abnormal findings (principal)
CPT/HCPCS: 36415; 80061; 82306; 85027; 83036

== ENCOUNTER 2025-02-21 02:20 | Outpatient (CLI) | payer BC, SELFPAY ==
--- NOTE | 2025-02-21 | DI.MAMMO_ITS ---
Exam(s) MAMMO SCREENING EXAM: MAMMO SCREENING CLINICAL HISTORY: SCREENING MAMMO Z12.31 TECHNIQUE: Bilateral full field digital CC and MLO mammographic images were obtained with 3D tomosynthesis and utilizing computer aided detection (CAD). COMPARISON: This is a baseline examination. FINDINGS: Masses/Architectural Distortion: No suspicious masses or areas of architectural distortion are present. Normal appearing lymph nodes are seen in the upper outer quadrant of the right breast. Microcalcifications: No suspicious pleomorphic-type are seen. Skin Thickening/Nipple Retraction: None. IMPRESSION: 1. There is no evidence for malignancy at this time. 2. Unless there is more urgent need, screening mammography is recommended, as per [employer] guidelines. BI-RADS Category 1 - Negative Breast Density - Category B - There are scattered areas of fibroglandular density. Breast density Category C or D implies that the patient has dense breast tissue. Dense breast tissue can make it harder to find cancer on a mammogram. Dense breast tissue is also associated with an increased risk of breast cancer. This information about the result of the mammogram report was provided to the patient to raise their awareness. Use this report when you speak with the patient about their risks for breast cancer, which includes their family history. At that time, you may recommend additional screening tests (Ultrasound or MRI) as these tests may add significant information. A negative radiographic report should not delay biopsy if a dominant or clinically suspicious mass is present. Up to ten percent of cancers are not identified on mammography. A negative report may reinforce clinical impression. Adenosis and dense breasts may obscure an underlying neoplasm. False positive reports average 6 to 10%. Patient will receive a letter notifying them of these results.
== END 2025-02-21 02:40 ==
LOC: DI 02:20
PROVIDERS: PCP Nurse Practitioner Family; Visit Provider Nurse Practitioner Family
DX: Z12.31 Encounter for screening mammogram for malignant neoplasm of breast (principal)
CPT/HCPCS: 77063; 77067

== ENCOUNTER 2025-02-22 07:38 | Outpatient (CLI) | payer BC, SELFPAY ==
--- NOTE | 2025-02-22 07:30 | RT.EKG_ITS ---
APPROVED REPORT Exam: Resting ECG Reason for Exam: hx of DC Patient Location: O HR:82 bpm ECG Measurements Heart Rate 82 AXIS AR 175 P 47 QRSd 90 QRS 32 QT 358 T 21 QTc 418 Conclusion Sinus rhythm...normal P axis, V-rate 50- 99 Left atrial enlargement...P, P'>60mS, <-0.15mV V1 Baseline wander in lead(s) V4 Otherwise normal ECG
== END 2025-02-22 07:39 | disposition home or self-care (01) ==
LOC: DI.CARD 07:39
PROVIDERS: PCP Nurse Practitioner Family; Visit Provider Internal Medicine Cardiovascular Disease
DX: I21.4 Non-ST elevation (NSTEMI) myocardial infarction (principal); I51.7 Cardiomegaly; I10 Essential (primary) hypertension; D75.839 Thrombocytosis, unspecified; Z12.31 Encounter for screening mammogram for malignant neoplasm of breast; N63.11 Unspecified lump in the right breast, upper outer quadrant
CPT/HCPCS: 93010